=== PATIENT | female | born 1955 | race Caucasian/White ===

== ENCOUNTER 2021-07-31 21:49 | Emergency (ER) | payer OTHER ==
[2021-07-31 22:25] VITALS: BP 165/75; PULSE 75; TEMP 98.3; BMI 39.0
[2021-07-31] MEDS ORDERED: ACETAMINOPHEN 325 MG TABLET (FP) PO ONE (23:12)
[2021-07-31] MEDS ORDERED: ACETAMINOPHEN 325 MG TABLET (FP) ONE (23:42)
[2021-07-31] MEDS ORDERED: LIDOCAINE 5% TOPICAL PATCH TP ONE (23:48)
[2021-08-01] MEDS ORDERED: LIDOCAINE 5% TOPICAL PATCH ONE (00:57)
== END 2021-08-01 01:21 | disposition left against medical advice (07) ==
LOC: JER 21:49
DX: R07.89 Other chest pain (principal); V87.7XXA Person injured in collision between other specified motor vehicles (traffic), initial encounter; Y92.9 Unspecified place or not applicable
CPT/HCPCS: 99285-25